=== PATIENT | female | born 1945 | race Caucasian/White ===

== ENCOUNTER 2024-03-23 16:33 | Emergency (ER) | payer MEDICARE ==
[~2024-03-23] VITALS: Ht 172.7 cm; Wt 111.9 kg
[2024-03-23] MEDS ORDERED: CLOT1CRE71 TOP (18:02)
[2024-03-23] MEDS ORDERED: SPIR-10 PO (18:02)
[2024-03-23] MEDS ORDERED: ESOM1CAP20 PO (18:02)
[2024-03-23] MEDS ORDERED: LOSA25TA13 PO (18:02)
[2024-03-23] MEDS ORDERED: DOCU100C17 PO (18:02)
[2024-03-23] MEDS ORDERED: BUSP1TAB PO (18:02)
[2024-03-23] MEDS ORDERED: LYRI200C PO (18:02)
[2024-03-23] MEDS ORDERED: ROSU10TA61 PO (18:02)
[2024-03-23] MEDS ORDERED: PRAM1TAB7 PO (18:02)
[2024-03-23] MEDS ORDERED: SERT50TA29 PO (18:02)
[2024-03-23 19:47] VITALS: BP 128/88; TEMP 98.9; O2SAT 98
== END 2024-03-23 20:23 | disposition home or self-care (01) ==
LOC: M ED 16:33 → EDSEX 16:33 → EDBD 16:33 → M ED 20:23
DX: S00.83XA Contusion of other part of head, initial encounter (principal); S16.1XXA Strain of muscle, fascia and tendon at neck level, initial encounter; Y92.410 Unspecified street and highway as the place of occurrence of the external cause; Y93.9 Activity, unspecified; Y99.9 Unspecified external cause status; W01.0XXA Fall on same level from slipping, tripping and stumbling without subsequent striking against object, initial encounter; I10 Essential (primary) hypertension; K21.9 Gastro-esophageal reflux disease without esophagitis; E78.5 Hyperlipidemia, unspecified; Z88.5 Allergy status to narcotic agent; Z79.899 Other long term (current) drug therapy

== ENCOUNTER → 2024-11-02 | Outpatient (REF) | payer MEDICARE ==
[~2024-11-02] MED LIST: BUSP1TAB PO; CLOT1CRE71 TOP; DOCU100C17 PO; ESOM1CAP20 PO; LOSA25TA13 PO; LYRI200C PO; PRAM1TAB7 PO; ROSU10TA61 PO; SERT50TA29 PO; SPIR-10 PO
[2024-11-02 13:29] LABS: ALT/SGPT 20 U/L (7.0-40); AST/SGOT 27 U/L (<34); CALCIUM LEVEL 9.1 MG/DL (8.3-10.6); CARBON DIOXIDE LEVEL 26 MMOL/L (20-31); CHLORIDE LEVEL 102 MMOL/L (98-107); CHOLESTEROL LEVEL 174 MG/DL (<200); CHOLESTEROL RISK RATIO 2.50 (<5); CREATININE FOR GFR 0.60 MG/DL (0.55-1.30); GLOMERULAR FILTRATION RATE > 90.0 (>32); LDL CHOLESTEROL 78.6 MG/DL (<100); NON-HDL-C 104.6 MG/DL; POTASSIUM SERUM 4.1 MMOL/L (3.5-5.1); SODIUM LEVEL 139 MMOL/L (136-145); TRIGLYCERIDES LEVEL 130 MG/DL (<150)
[2024-11-02 13:31] LABS: TOTAL 25(OH) VITAMIN D 50.4 NG/ML (20.0-100.0)
[2024-11-02 13:38] LABS: BASO # 0.1 10^3/uL (0.0-0.2); BASO % 0.7 % (0.0-1.0); EOS # 0.2 10^3/uL (0.0-0.5); EOS % 2.2 % (0.0-3.0); LYMPH # 1.8 10^3/uL (1.5-5.0); LYMPH % 22.0 % (24.0-44.0); MONO # 0.5 10^3/uL (0.0-0.8); MONO % 5.4 % (2.0-8.0); NEUTROPHILS # 5.8 10^3/uL (1.5-8.5); NEUTROPHILS % 69.2 % (36.0-66.0); PLATELET COUNT, AUTOMATED 241 10^3/uL (150-450)
== END ==
LOC: M LABDRAWC 12:04
PROVIDERS: ATTEND Physician Assistant Medical
DX: I10 Essential (primary) hypertension (principal); E78.00 Pure hypercholesterolemia, unspecified; E55.9 Vitamin D deficiency, unspecified; Z13.6 Encounter for screening for cardiovascular disorders

== ENCOUNTER 2024-12-18 12:57 | Inpatient (IN) | payer MEDICARE ==
[~2024-12-18] VITALS: Ht 172.7 cm; Wt 113.7 kg
[2024-12-18] MEDS: MORPHINE 4 MG/ML 1 ML VIAL IV PRN ×2 (13:26→17:46)
[2024-12-18 14:07] LABS: BASO # 0.1 10^3/uL (0.0-0.2); BASO % 0.5 % (0.0-1.0); EOS # 0.1 10^3/uL (0.0-0.5); EOS % 1.2 % (0.0-3.0); LYMPH # 1.9 10^3/uL (1.5-5.0); LYMPH % 19.3 % (24.0-44.0); MONO # 0.5 10^3/uL (0.0-0.8); MONO % 4.7 % (2.0-8.0); NEUTROPHILS # 7.3 10^3/uL (1.5-8.5); NEUTROPHILS % 73.6 % (36.0-66.0)
[2024-12-18 14:32] LABS: CALCIUM LEVEL 9.7 MG/DL (8.3-10.6); CARBON DIOXIDE LEVEL 28.0 MMOL/L (20-31); CHLORIDE LEVEL 101.0 MMOL/L (98-107); CREATININE FOR GFR 0.63 MG/DL (0.55-1.30); GLOMERULAR FILTRATION RATE 89.6 (>32); POTASSIUM SERUM 4.3 MMOL/L (3.5-5.1); SODIUM LEVEL 140.0 MMOL/L (136-145)
[2024-12-18] MEDS ORDERED: MOM 30 ML SUSPENSION UDC PO PRN (14:55)
[2024-12-18] MEDS ORDERED: KP F1200 PO (15:00)
[2024-12-18] MEDS ORDERED: FURO40TA2 PO (15:00)
[2024-12-18] MEDS ORDERED: ZOLO100T PO (15:00)
[2024-12-18] MEDS ORDERED: CHOL25CA2 PO (15:00)
[2024-12-18] MEDS ORDERED: PRAM1TAB7 PO (15:00)
[2024-12-18] MEDS ORDERED: PREG-35 PO (15:02)
[2024-12-18] MEDS ORDERED: HOME MED LIST COMPLETE! XX SCH (15:05)
[2024-12-18] MEDS ORDERED: ONDANSETRON 4MG 2ML VIAL IV PRN (15:40)
[2024-12-18] MEDS: ACETAMINOPHEN 500 MG TAB PO SCH (15:48)
[2024-12-18] MEDS: KETOROLAC 30 MG/ML 1 ML VIAL IV SCH (15:48)
[2024-12-18 20:05] VITALS: BP 144/80; TEMP 97.2; O2SAT 95
[2024-12-18 20:57] VITALS: BP 150/69
[2024-12-18] MEDS: ROSUVASTATIN 10 MG TAB PO SCH (21:50)
[2024-12-18] MEDS: PRAMIPEXOLE 1 MG TAB PO SCH (21:50)
[2024-12-18 21:51] VITALS: BP 110/54
[2024-12-18] MEDS: PREGABALIN 100 MG CAP PO SCH (21:51)
[2024-12-18] MEDS: DOCUSATE SODIUM 100 MG CAPSULE PO SCH (21:51)
[2024-12-18] MEDS: PANTOPRAZOLE 40MG TAB PO SCH (21:51)
[2024-12-19 05:52] VITALS: BP 121/59; TEMP 97.7; O2SAT 98
[2024-12-19 07:21] LABS: BASO # 0.0 10^3/uL (0.0-0.2); BASO % 0.3 % (0.0-1.0); EOS # 0.1 10^3/uL (0.0-0.5); EOS % 1.5 % (0.0-3.0); LYMPH # 1.1 10^3/uL (1.5-5.0); LYMPH % 11.6 % (24.0-44.0); MONO # 0.5 10^3/uL (0.0-0.8); MONO % 5.3 % (2.0-8.0); NEUTROPHILS # 7.4 10^3/uL (1.5-8.5); NEUTROPHILS % 80.8 % (36.0-66.0); PLATELET COUNT, AUTOMATED 187 10^3/uL (150-450)
[2024-12-19] MEDS ORDERED: PHENYLEPHRINE 10MG/ML 1ML VIAL As Ordered ONE (07:27)
[2024-12-19] MEDS ORDERED: ACETAMINOPHEN 1000MG/100ML IV BAG As Ordered ONE (07:28)
[2024-12-19] MEDS ORDERED: ONDANSETRON 4MG 2ML VIAL As Ordered ONE (07:28)
[2024-12-19] MEDS ORDERED: LIDOCAINE 2% 100 MG/5 ML SDV (FOR ANES.) As Ordered ONE (07:28)
[2024-12-19] MEDS: VANCOMYCIN 500MG/10ML VIAL As Ordered ONE (07:46)
[2024-12-19] MEDS ORDERED: KETAMINE HCL 200 MG/20 ML VIAL As Ordered ONE (07:57)
[2024-12-19 08:03] LABS: CALCIUM LEVEL 9.3 MG/DL (8.3-10.6); CARBON DIOXIDE LEVEL 29.0 MMOL/L (20-31); CHLORIDE LEVEL 102.0 MMOL/L (98-107); CREATININE FOR GFR 0.72 MG/DL (0.55-1.30); GLOMERULAR FILTRATION RATE 84.5 (>32); POTASSIUM SERUM 4.4 MMOL/L (3.5-5.1); SODIUM LEVEL 138.0 MMOL/L (136-145)
[2024-12-19] MEDS: SERTRALINE 100 MG TAB PO SCH (08:15)
[2024-12-19] MEDS ORDERED: FLUZONE HIGH DOSE TRI (25-26) 0.5 ML SYRINGE IM.IMMUN ONE (09:00)
[2024-12-19] MEDS ORDERED: ROCURONIUM BROMIDE 50MG/5ML VIAL As Ordered ONE (09:10)
[2024-12-19] MEDS: TRANEXAMIC ACID 100 MG/ML 10ML VIAL As Ordered ONE (09:27)
[2024-12-19] MEDS ORDERED: dexAMETHasone 4 MG/ML 1 ML VIAL As Ordered ONE (09:28)
[2024-12-19] MEDS ORDERED: HYDROmorphone HCL 2 MG/ML 1 ML VIAL As Ordered ONE (09:38)
[2024-12-19] MEDS ORDERED: SUGAMMADEX SODIUM 500 MG/5 ML VIAL As Ordered ONE (09:43)
[2024-12-19] MEDS ORDERED: KETOROLAC 30 MG/ML 1 ML VIAL As Ordered ONE (09:46)
[2024-12-19] MEDS: VANCOMYCIN 1000MG/20ML VIAL As Ordered ONE (10:52)
[2024-12-19] MEDS ORDERED: HYDROMORPHONE HCL 0.5 MG/0.5 ML SYRINGE IV PRN (11:30)
[2024-12-19 12:15] VITALS: BP 113/62; TEMP 97.6; O2SAT 92
[2024-12-19 12:45] VITALS: BP 113/66; TEMP 97.6; O2SAT 92
[2024-12-19 13:45] VITALS: BP 94/65; TEMP 97.5; O2SAT 93
[2024-12-19 14:45] VITALS: BP 110/63; TEMP 97.6; O2SAT 93
[2024-12-19] MEDS: ceFAZolin SOD 1 GM in DEXTROSE 5% (D5W) ADV/MINI-BAG 50 ML IV SCH (16:20)
[2024-12-19 19:25] VITALS: BP 98/54; TEMP 97.7; O2SAT 92
[2024-12-20 00:27] VITALS: BP 135/70; TEMP 97; O2SAT 97
[2024-12-20 05:54] VITALS: BP 123/76; TEMP 97.4; O2SAT 98
[2024-12-20] MEDS ORDERED: ENOXAPARIN 40 MG/0.4 ML SYRINGE (J1650 PER 10MG) SC SCH (09:00)
[2024-12-20] MEDS ORDERED: ALBUTEROL SULFATE 2.5 MG/0.5 ML INH CONCENTRATE NEB SOLN NEB PRN (09:10)
[2024-12-20] MEDS ORDERED: MIRALAX *UNIT DOSE* 17 GM PACKET PO PRN (09:40)
[2024-12-20 09:42] LABS: BASO # 0.0 10^3/uL (0.0-0.2); BASO % 0.3 % (0.0-1.0); EOS # 0.1 10^3/uL (0.0-0.5); EOS % 0.8 % (0.0-3.0); LYMPH # 1.3 10^3/uL (1.5-5.0); LYMPH % 12.6 % (24.0-44.0); MONO # 0.6 10^3/uL (0.0-0.8); MONO % 5.3 % (2.0-8.0); NEUTROPHILS # 8.6 10^3/uL (1.5-8.5); NEUTROPHILS % 80.4 % (36.0-66.0); PLATELET COUNT, AUTOMATED 171 10^3/uL (150-450)
[2024-12-20] MEDS: SENNA 8.6 MG TAB PO SCH (09:48)
[2024-12-20 10:20] LABS: CALCIUM LEVEL 8.1 MG/DL (8.3-10.6); CARBON DIOXIDE LEVEL 26 MMOL/L (20-31); CHLORIDE LEVEL 105 MMOL/L (98-107); CREATININE FOR GFR 0.59 MG/DL (0.55-1.30); GLOMERULAR FILTRATION RATE > 90.0 (>32); POTASSIUM SERUM 3.9 MMOL/L (3.5-5.1); SODIUM LEVEL 134 MMOL/L (136-145)
[2024-12-20] MEDS: ENOXAPARIN 40 MG/0.4 ML SYRINGE (J1650 PER 10MG) SC SCH (13:50)
[2024-12-20 14:00] VITALS: BP 124/78; TEMP 97.5; O2SAT 97
[2024-12-20 20:08] VITALS: BP 121/73; TEMP 97.6; O2SAT 97
[2024-12-20] MEDS: MAALOX 30 ML SUSP *UDC PO PRN (20:39)
[2024-12-21 06:00] VITALS: BP 129/63; TEMP 99.8; O2SAT 97
[2024-12-21 07:23] LABS: BASO # 0.0 10^3/uL (0.0-0.2); BASO % 0.3 % (0.0-1.0); EOS # 0.2 10^3/uL (0.0-0.5); EOS % 2.1 % (0.0-3.0); LYMPH # 0.6 10^3/uL (1.5-5.0); LYMPH % 6.2 % (24.0-44.0); MONO # 0.5 10^3/uL (0.0-0.8); MONO % 5.2 % (2.0-8.0); NEUTROPHILS # 8.5 10^3/uL (1.5-8.5); NEUTROPHILS % 85.8 % (36.0-66.0); PLATELET COUNT, AUTOMATED 162 10^3/uL (150-450)
[2024-12-21 07:40] LABS: CALCIUM LEVEL 8.2 MG/DL (8.3-10.6); CARBON DIOXIDE LEVEL 30 MMOL/L (20-31); CHLORIDE LEVEL 105 MMOL/L (98-107); CREATININE FOR GFR 0.56 MG/DL (0.55-1.30); GLOMERULAR FILTRATION RATE > 90.0 (>32); POTASSIUM SERUM 4.6 MMOL/L (3.5-5.1); SODIUM LEVEL 139 MMOL/L (136-145)
[2024-12-21 14:00] VITALS: BP 129/84; TEMP 97.5; O2SAT 95
[2024-12-21 20:00] VITALS: BP 113/69; TEMP 98.1; O2SAT 96
[2024-12-22 04:00] VITALS: BP 116/88; TEMP 98.1; O2SAT 97
[2024-12-22 07:09] LABS: BASO # 0.0 10^3/uL (0.0-0.2); BASO % 0.3 % (0.0-1.0); EOS # 0.2 10^3/uL (0.0-0.5); EOS % 2.7 % (0.0-3.0); LYMPH # 1.0 10^3/uL (1.5-5.0); LYMPH % 13.2 % (24.0-44.0); MONO # 0.5 10^3/uL (0.0-0.8); MONO % 6.7 % (2.0-8.0); NEUTROPHILS # 5.8 10^3/uL (1.5-8.5); NEUTROPHILS % 76.6 % (36.0-66.0); PLATELET COUNT, AUTOMATED 160 10^3/uL (150-450)
[2024-12-22 07:33] LABS: CALCIUM LEVEL 8.2 MG/DL (8.3-10.6); CARBON DIOXIDE LEVEL 29 MMOL/L (20-31); CHLORIDE LEVEL 102 MMOL/L (98-107); CREATININE FOR GFR 0.59 MG/DL (0.55-1.30); GLOMERULAR FILTRATION RATE > 90.0 (>32); POTASSIUM SERUM 4.3 MMOL/L (3.5-5.1); SODIUM LEVEL 135 MMOL/L (136-145)
[2024-12-22] MEDS ORDERED: FERR325T3 PO (11:23)
[2024-12-22] MEDS ORDERED: VITA500C24 PO (11:23)
[2024-12-22] MEDS ORDERED: OXYC-517 PO (11:23)
[2024-12-22] MEDS ORDERED: IBUP600T42 PO (11:23)
[2024-12-22] MEDS ORDERED: COLA100C5 PO (11:23)
[2024-12-22] MEDS ORDERED: ACET-683 PO (11:23)
[2024-12-22] MEDS ORDERED: ASPI-615 PO (11:23)
== END 2024-12-22 13:26 | disposition home health service (06) | DRG 522 ==
LOC: M ED 12:57 → M ED INP 14:51 → M MS5PR 16:15
PROVIDERS: ADMIT Internal Medicine Nephrology; ATTEND Internal Medicine Nephrology
PROC: 0SRS0JZ Replacement of Left Hip Joint, Femoral Surface with Synthetic Substitute, Open Approach (ICD-10-PCS; principal; 2024-12-19 08:30)
DX: S72.002A Fracture of unspecified part of neck of left femur, initial encounter for closed fracture (principal); D62 Acute posthemorrhagic anemia; Z66 Do not resuscitate; W01.0XXA Fall on same level from slipping, tripping and stumbling without subsequent striking against object, initial encounter; Y92.009 Unspecified place in unspecified non-institutional (private) residence as the place of occurrence of the external cause; Y93.H2 Activity, gardening and landscaping; I10 Essential (primary) hypertension; E78.00 Pure hypercholesterolemia, unspecified; K21.9 Gastro-esophageal reflux disease without esophagitis; F32.A Depression, unspecified; G25.81 Restless legs syndrome; Z96.641 Presence of right artificial hip joint; Z96.653 Presence of artificial knee joint, bilateral; Z90.79 Acquired absence of other genital organ(s); Z79.899 Other long term (current) drug therapy; Z88.5 Allergy status to narcotic agent

== ENCOUNTER → 2025-01-14 | Outpatient (CLI) | payer MEDICARE ==
[~2025-01-14] MED LIST changes: +ACET-683 PO; +ASPI-615 PO; +ASPI81TA26 PO; +CEFD300CAP PO; +CHOL25CA2 PO; +COLA100C5 PO; +FERR325T3 PO; +FURO40TA2 PO; +IBUP600T42 PO; +KP F1200 PO; +MM S100C PO; +OXYC-517 PO; +PREG-35 PO; +RAME8TAB2 PO; +VITA500C24 PO; +ZOLO100T PO
== END ==
LOC: M SOG 07:20
PROVIDERS: ATTEND Physician Assistant
DX: S72.002A Fracture of unspecified part of neck of left femur, initial encounter for closed fracture (principal); W18.30XA Fall on same level, unspecified, initial encounter; Y92.009 Unspecified place in unspecified non-institutional (private) residence as the place of occurrence of the external cause

== ENCOUNTER 2025-01-21 07:24 | Observation (INO) | payer MEDICARE ==
[~2025-01-21] VITALS: Ht 172.7 cm; Wt 122.0 kg
[~2025-01-21 07:24] MED LIST changes: -ASPI81TA26 PO; -CEFD300CAP PO; -MM S100C PO; -RAME8TAB2 PO
[2025-01-21] MEDS ORDERED: ACET-683 PO (09:48)
[2025-01-21] MEDS ORDERED: ASPI81TA26 PO (09:51)
[2025-01-21] MEDS ORDERED: VITA500C24 PO (09:51)
[2025-01-21] MEDS ORDERED: MM S100C PO (09:53)
[2025-01-21] MEDS ORDERED: FERR325T3 PO (09:54)
[2025-01-21] MEDS ORDERED: IBUP600T42 PO (09:56)
[2025-01-21] MEDS ORDERED: OXYC-517 PO (09:58)
[2025-01-21] MEDS ORDERED: HOME MED LIST COMPLETE! XX SCH (10:00)
[2025-01-21 10:56] LABS: BASO # 0.0 10^3/uL (0.0-0.2); BASO % 0.4 % (0.0-1.0); EOS # 0.0 10^3/uL (0.0-0.5); EOS % 0.3 % (0.0-3.0); LYMPH # 1.4 10^3/uL (1.5-5.0); LYMPH % 13.3 % (24.0-44.0); MONO # 0.5 10^3/uL (0.0-0.8); MONO % 5.0 % (2.0-8.0); NEUTROPHILS # 8.6 10^3/uL (1.5-8.5); NEUTROPHILS % 80.3 % (36.0-66.0); PLATELET COUNT, AUTOMATED 202 10^3/uL (150-450)
[2025-01-21 11:03] LABS: KETONE, URINE AUTO RFX NEGATIVE (NEGATIVE); RBC, URINE AUTO RFX 6 /HPF (0-3); SQUAM EPITHELIAL CELL UR AURFX 1 /HPF (0-6); WBC, URINE AUTO RFX 5 /HPF (0-3)
[2025-01-21 11:20] LABS: INR 0.95
[2025-01-21 11:21] LABS: LEUKOCYTE ESTERASE UR AUTO RFX 1+ (NEGATIVE); NITRITE, URINE AUTO RFX POSITIVE (NEGATIVE)
[2025-01-21 11:26] LABS: ALT/SGPT 16 U/L (7.0-40); AST/SGOT 29 U/L (<34); CALCIUM LEVEL 9.2 MG/DL (8.3-10.6); CARBON DIOXIDE LEVEL 26 MMOL/L (20-31); CHLORIDE LEVEL 99 MMOL/L (98-107); CREATININE FOR GFR 0.52 MG/DL (0.55-1.30); GLOMERULAR FILTRATION RATE > 90.0 (>32); POTASSIUM SERUM 3.8 MMOL/L (3.5-5.1); SODIUM LEVEL 135 MMOL/L (136-145)
[2025-01-21] MEDS: rOPINIRole 0.25 MG TAB PO ONE (15:24)
[2025-01-21] MEDS ORDERED: DOCUSATE SODIUM 100 MG CAPSULE PO PRN (15:45)
[2025-01-21] MEDS: ASCORBIC ACID 500 MG TAB PO SCH (16:03)
[2025-01-21] MEDS: OMEPRAZOLE 20MG CAP PO SCH (16:03)
[2025-01-21] MEDS: SPIRONOLACTONE 25 MG TAB PO SCH (16:04)
[2025-01-21] MEDS: FUROSEMIDE 40 MG/4 ML VIAL IV ONE (16:04)
[2025-01-21] MEDS: LOSARTAN 25 MG TAB PO SCH (16:04)
[2025-01-21] MEDS: FERROUS SULFATE 325 MG TAB PO SCH (17:06)
[2025-01-21] MEDS: ENOXAPARIN 40 MG/0.4 ML SYRINGE (J1650 PER 10MG) SC SCH (17:06)
[2025-01-21] MEDS: cefTRIAXone SOD 1 GM in DEXTROSE 5% (D5W) ADV/MINI-BAG 50 ML IV SCH (17:06)
[2025-01-21] MEDS: SERTRALINE 100 MG TAB PO SCH (17:06)
[2025-01-21 17:35] VITALS: BP 150/64; TEMP 98.8; O2SAT 94
[2025-01-21 19:30] VITALS: BP 144/64; TEMP 98.6; O2SAT 92
[2025-01-21] MEDS: PREGABALIN 100 MG CAP PO SCH (20:45)
[2025-01-21] MEDS: ASPIRIN 81 MG ENTERIC TABLET PO SCH (20:45)
[2025-01-21] MEDS: PRAMIPEXOLE 1 MG TAB PO SCH (20:45)
[2025-01-21] MEDS: RAMELTEON 8 MG TAB PO PRN (20:45)
[2025-01-21] MEDS: busPIRone 5 MG TAB PO PRN (20:46)
[2025-01-22 04:34] VITALS: BP 141/71; TEMP 97.9; O2SAT 97
[2025-01-22 06:35] LABS: PLATELET COUNT, AUTOMATED 187 10^3/uL (150-450)
[2025-01-22 06:56] LABS: ALT/SGPT 19 U/L (7.0-40); AST/SGOT 36 U/L (<34); CALCIUM LEVEL 8.8 MG/DL (8.3-10.6); CARBON DIOXIDE LEVEL 28 MMOL/L (20-31); CHLORIDE LEVEL 100 MMOL/L (98-107); CREATININE FOR GFR 0.57 MG/DL (0.55-1.30); GLOMERULAR FILTRATION RATE > 90.0 (>32); POTASSIUM SERUM 4.0 MMOL/L (3.5-5.1); SODIUM LEVEL 138 MMOL/L (136-145)
[2025-01-22 08:00] VITALS: BP 134/70; TEMP 98.1; O2SAT 97
[2025-01-22] MEDS: FUROSEMIDE 40 MG/4 ML VIAL IV ONE (09:51)
[2025-01-22 12:00] VITALS: BP 134/70; TEMP 98.1; O2SAT 97
[2025-01-22 17:26] LABS: IRON (FE) 60 UG/DL (50-170); PERCENT SATURATION 20.7 % (13.2-45.0)
[2025-01-22 17:29] LABS: VITAMIN B12 LEVEL 247 PG/ML (211-911)
[2025-01-22 19:46] VITALS: BP 110/54; TEMP 97.7; O2SAT 96
[2025-01-22] MEDS: RAMELTEON 8 MG TAB PO SCH (20:41)
[2025-01-22] MEDS: ACETAMINOPHEN 325 MG TAB PO PRN (20:42)
[2025-01-23 04:06] VITALS: BP 117/56; TEMP 97.5; O2SAT 97
[2025-01-23 06:58] LABS: PLATELET COUNT, AUTOMATED 210 10^3/uL (150-450)
[2025-01-23 07:40] LABS: ALT/SGPT 23 U/L (7.0-40); AST/SGOT 33 U/L (<34); CALCIUM LEVEL 9.0 MG/DL (8.3-10.6); CARBON DIOXIDE LEVEL 29 MMOL/L (20-31); CHLORIDE LEVEL 100 MMOL/L (98-107); CREATININE FOR GFR 0.54 MG/DL (0.55-1.30); GLOMERULAR FILTRATION RATE > 90.0 (>32); POTASSIUM SERUM 3.6 MMOL/L (3.5-5.1); SODIUM LEVEL 138 MMOL/L (136-145)
[2025-01-23] MEDS ORDERED: RAME8TAB2 PO (07:40)
[2025-01-23] MEDS ORDERED: CEFD300CAP PO (07:40)
[2025-01-23] MEDS: PNEUMOC 21-VAL CONJ-DIP CRM/PF 0.5 ML SYRINGE IM.IMMUN ONE (09:00)
[2025-01-23] MEDS: FLUZONE HIGH DOSE (65+) 0.5 ML SYRINGE (25-26) IM.IMMUN ONE (09:00)
[2025-01-23] MEDS: CEFDINIR 300 MG CAP PO SCH (10:10)
[2025-01-23 10:14] VITALS: BP 119/60
== END 2025-01-23 14:45 | disposition home or self-care (01) ==
LOC: M ED 07:24 → EDBD 07:24 → M ED INP 15:44 → M MSPAV 17:34
PROVIDERS: ADMIT Internal Medicine; ATTEND Internal Medicine
DX: R55 Syncope and collapse (principal); Z91.81 History of falling; R53.1 Weakness; N39.0 Urinary tract infection, site not specified; B96.20 Unspecified Escherichia coli [E. coli] as the cause of diseases classified elsewhere; R26.81 Unsteadiness on feet; G25.81 Restless legs syndrome; G47.00 Insomnia, unspecified; R53.83 Other fatigue; I50.32 Chronic diastolic (congestive) heart failure; M79.9 Soft tissue disorder, unspecified; Z96.643 Presence of artificial hip joint, bilateral; G89.29 Other chronic pain; Z87.81 Personal history of (healed) traumatic fracture; D64.9 Anemia, unspecified; E55.9 Vitamin D deficiency, unspecified; Z96.653 Presence of artificial knee joint, bilateral; Z90.79 Acquired absence of other genital organ(s); Z88.5 Allergy status to narcotic agent; Z79.899 Other long term (current) drug therapy; Z79.82 Long term (current) use of aspirin
CPT/HCPCS: 36415; 70450; 71045; 72125; 80048; 80053; 80076; 81001; 82607; 82728; 82746; 83550; 83605; 83690; 83880; 84145; 85025; 85027; 85610; 85730; 87040; 87088; 87186; 93005; 93041; 93306; 93971; 96365; 96372; 96375; 96376; 97116; 97161; 97165; 99285; G0378; J0696; J1650; J1938; J3360

== ENCOUNTER → 2025-02-26 | Outpatient (CLI) | payer MEDICARE ==
[~2025-02-26] MED LIST changes: +ASPI81TA26 PO; +CEFD300CAP PO; +MM S100C PO; +RAME8TAB2 PO; -ROSU10TA61 PO; +ROSU10TA90 PO
== END ==
LOC: M SOG 08:02
PROVIDERS: ATTEND Physician Assistant
DX: S72.002D Fracture of unspecified part of neck of left femur, subsequent encounter for closed fracture with routine healing (principal); W18.30XD Fall on same level, unspecified, subsequent encounter